=== PATIENT | female | born 1965 | race Caucasian/White ===

== ENCOUNTER 2022-10-08 22:15 | Inpatient (IN) | payer MEDICAID ==
[~2022-10-08] VITALS: Ht 152.4 cm; Wt 65.3 kg
[2022-10-08 22:20] VITALS: BP 147/73; PULSE 74; RESP 22; TEMP 97.8; O2SAT 88
--- NOTE | 2022-10-08 22:22 | NUR ---
pt to bed 02 w/c assisted
--- NOTE | 2022-10-08 22:37 | NUR ---
XRAY AT BEDSIDE
--- NOTE | 2022-10-08 22:54 | NUR ---
RT AT BEDSIDE
[2022-10-08] MEDS ORDERED: LORazepam 2 MG/ML VIAL ONE (22:55)
[2022-10-08] MEDS ORDERED: ONDANSETRON 4 MG/2 ML VIAL IVP ONE (22:55)
[2022-10-08] MEDS ORDERED: IPRATROPIUM 0.02% 0.5 MG/2.5 ML NEBU INH ONE (22:55)
[2022-10-08] MEDS ORDERED: LORazepam 2 MG/ML VIAL IVP ONE (22:55)
[2022-10-08] MEDS ORDERED: ALBUTEROL 0.083% 2.5 MG/3 ML NEBU INH ONE (22:55)
[2022-10-08 22:56] LABS: BASOPHILS # (AUTO) 0.2 K/uL (0.00-0.22); BASOPHILS % (AUTO) 1.1 % (0.0-2.0); EOSINOPHILS # (AUTO) 0.1 K/uL (0-0.4); EOSINOPHILS % (AUTO) 0.5 % (0.0-4.0); HEMATOCRIT 34.1 % (36-48); LYMPHOCYTES # (AUTO) 4.4 K/uL (2.5-16.5); LYMPHOCYTES % (AUTO) 25.3 % (20.5-51.1); MEAN CORPUSCULAR HEMOGLOBIN 28 pg (27-31); MEAN CORPUSCULAR HGB CONC 32 g/dL (33-37); MEAN CORPUSCULAR VOLUME 86.1 fL (80-94); MONOCYTES # (AUTO) 1.1 K/uL (0.8-1.0); MONOCYTES % (AUTO) 6.2 % (1.7-9.3); NEUTROPHILS # (AUTO) 11.6 K/uL (1.8-7.7); NEUTROPHILS % (AUTO) 66.9 % (42.2-75.2); PLATELET COUNT (AUTO) 308 K/uL (140-450); RED BLOOD CELL COUNT(AUTO) 3.96 MIL/uL (4.20-5.40); RED CELL DISTRIBUTION WIDTH 15.9 % (11.6-13.7); WHITE BLOOD COUNT (AUTO) 17.3 K/uL (4.8-10.8)
[2022-10-08 23:02] VITALS: BP 137/70; PULSE 75; O2SAT 99
[2022-10-08 23:05] VITALS: O2SAT 98
[2022-10-08 23:11] LABS: PROTHROMBIN TIME 10.2 secs (10.8-13.4)
[2022-10-08 23:12] VITALS: PULSE 72; RESP 35; O2SAT 97
[2022-10-08 23:23] LABS: ALBUMIN 3.7 g/dL (3.4-5.0); ANION GAP 16.8 (8-16); CARBON DIOXIDE 22.9 mmol/L (21-32); CREATININE 0.9 mg/dL (0.6-1.3); POTASSIUM 4.7 mmol/L (3.5-5.1); TOTAL BILIRUBIN 0.3 mg/dL (0.0-1.0)
--- NOTE | 2022-10-08 23:25 | NUR ---
57 YO F BIB SELF C/O SHORTNESS OF BREATH STARTING TODAY. PT STATES HX BRONCHITIS. AXO4. PT PRESENTS VERY ANXIOUS AND RESP SOUNDS WHEEZING. PT PLACED ON BIPAP PER RT. PLACED ON BEDSIDE RELATIONS COORDINATOR. ALLERGY: MORPHINE HX: CARDIAC BYPASS, BRONCHITIS
[2022-10-08] MEDS ORDERED: FUROSEMIDE 40 MG/4 ML VIAL IVP ONE (23:35)
[2022-10-08] MEDS ORDERED: cefTRIAXone 1,000 MG VIAL ONE (23:47)
[2022-10-09] VITALS (15 sets, daily range): BP systolic 106–130; BP diastolic 51–72; PULSE 58–75; RESP 16–22; TEMP 96.9–98.1; O2SAT 96–100
--- NOTE | 2022-10-09 00:01 | NUR ---
RT AT BEDSIDE COVID AND FLU SWABS COLLECTED AND SENT. FAMILY AT BEDSIDE
--- NOTE | 2022-10-09 00:25 | NUR ---
ATTEMPTED TO OBTAIN ABG PER MD. MD VERBALLY CANCELLED ABG AND ORDERED VBG INSTEAD.
--- NOTE | 2022-10-09 00:55 | NUR ---
PUREWIC APPLIED TO PT . RESP EVEN AND UNLABORED. PT ON BIPAP SP02 97%. ON BEDSIDE MONITOR HOB ELEVATED. PT FAMILY AT BEDSIDE
--- NOTE | 2022-10-09 01:06 | NUR ---
PT TO CT.
--- NOTE | 2022-10-09 01:29 | NUR ---
PT BACK FROM CT.
--- NOTE | 2022-10-09 01:30 | NUR ---
PT BACK FROM CT. PT TOLERATED WELL
--- NOTE | 2022-10-09 01:33 | NUR ---
PT ON BEDSIDE SPIKE DRIVER HOB ELEVATED. RESP EVEN AND UNLABORED. FAMILY LEFT LEFT FOR THE NIGHT. CALL LIGHT WITHIN REACH PT AWARE OF USE OF CALL LIGHT
--- NOTE | 2022-10-09 03:49 | NUR ---
PT RESTING IN BED WITH HOB ELEVATED . ON BEDSIDE MONITOR. RESP EVEN AND UNLABORED. PENDING ADMISSION ORDERS
[2022-10-09] MEDS ORDERED: AZITHROMYCIN 500 MG in DEXTROSE 5% 250 ML IV ONE (04:35)
[2022-10-09] MEDS ORDERED: AZITHROMYCIN 500 MG INJ VIAL IV ONE (04:40)
[2022-10-09] MEDS ORDERED: NACL 0.9% 1,000 ML IV SCH (04:50)
[2022-10-09] MEDS ORDERED: POTASSIUM CHLORIDE 10 MEQ TABER PO PRN (04:50)
[2022-10-09] MEDS ORDERED: DOCUSATE SODIUM 100 MG GELCAP PO PRN (04:50)
[2022-10-09] MEDS ORDERED: guaiFENesin DM 200/20 MG-10 ML 10 ML UDC PO PRN (04:50)
[2022-10-09] MEDS ORDERED: HYDROcodone/APAP 7.5/325 MG 1 TAB PO PRN (04:50)
[2022-10-09] MEDS ORDERED: ONDANSETRON 4 MG/2 ML VIAL IM/IVP PRN (04:50)
[2022-10-09] MEDS ORDERED: ZOLPIDEM 5 MG TAB PO PRN (04:50)
[2022-10-09] MEDS ORDERED: ALBUTEROL SULFATE/IPRATROPIU 3 ML SOL IH PRN (04:55)
[2022-10-09] MEDS ORDERED: FUROSEMIDE 40 MG/4 ML VIAL IVP SCH (05:00)
--- NOTE | 2022-10-09 05:51 | NUR ---
Patient will be admitted to care of DR FARR. Admited to TELE . Will go to room 111B. Belongings list completed. Report to RUFINA FRAZIER.
--- NOTE | 2022-10-09 05:54 | NUR ---
TRANSFERRED PT FROM ER TO TELEMETRY. PT SPO2 99% ON BIPAP, NO RESPIRATORY DISTRESS NOTED. BIPAP MACHINE WHEEL LOCK ENGAGED, PLUGGED INTO RED OUTLET, ALARMS ON AND AUDIBLE, CALL LIGHT IS WITHIN REACH.
--- NOTE | 2022-10-09 05:55 | NUR ---
received pt from er nurse Cortez. pt arrived via gurney, patient is awake, alert and oriented x 4. pt is on bipap, no s/sx of respiratory distress noted. vital signs as follows BP 98/48, hr 65, rr 18, temp 96.9 and o2 sat at 100%. lasix was not given at 5am due to low blood pressures. No complains of pain at the moment. all needs met. mrsa swab done. oriented to room, visiting hours and call light.all safety precautions in place. call light within reach. will continue to monitor.
[2022-10-09] MEDS: ALBUTEROL SULFATE/IPRATROPIU 3 ML SOL IH SCH ×3 (07:33→19:10)
[2022-10-09 08:16] LABS: BASOPHILS # (AUTO) 0.1 K/uL (0.00-0.22); BASOPHILS % (AUTO) 1.2 % (0.0-2.0); EOSINOPHILS % (AUTO) 0.1 % (0.0-4.0); HEMATOCRIT 30.1 % (36-48); HEMOGLOBIN 9.8 g/dL (12.0-16.0); LYMPHOCYTES # (AUTO) 2.5 K/uL (2.5-16.5); LYMPHOCYTES % (AUTO) 24.2 % (20.5-51.1); MEAN CORPUSCULAR HEMOGLOBIN 28 pg (27-31); MEAN CORPUSCULAR HGB CONC 33 g/dL (33-37); MEAN CORPUSCULAR VOLUME 85.2 fL (80-94); MONOCYTES # (AUTO) 0.8 K/uL (0.8-1.0); MONOCYTES % (AUTO) 7.7 % (1.7-9.3); NEUTROPHILS % (AUTO) 66.8 % (42.2-75.2); PLATELET COUNT (AUTO) 238 K/uL (140-450); RED BLOOD CELL COUNT(AUTO) 3.53 MIL/uL (4.20-5.40); RED CELL DISTRIBUTION WIDTH 15.9 % (11.6-13.7); WHITE BLOOD COUNT (AUTO) 10.5 K/uL (4.8-10.8)
[2022-10-09 08:30] LABS: ALBUMIN 3.2 g/dL (3.4-5.0); CARBON DIOXIDE 28.9 mmol/L (21-32); CREATININE 0.7 mg/dL (0.6-1.3); POTASSIUM 3.9 mmol/L (3.5-5.1); TOTAL BILIRUBIN 0.4 mg/dL (0.0-1.0)
--- NOTE | 2022-10-09 08:42 | NUR ---
PATIENT HAS BEEN SCREENED AND CATEGORIZED MODERATE NUTRITION RISK. PATIENT WILL BE SEEN WITHIN 3-5 DAYS OF ADMISSION. 10/12/22-10/14/[address]
[2022-10-09] MEDS ORDERED: FUROSEMIDE 20 MG TAB PO SCH (10:17)
[2022-10-09] MEDS: POTASSIUM CHLORIDE 10 MEQ TABER PO SCH (11:03)
[2022-10-09] MEDS: PANTOPRAZOLE 40 MG TABEC PO SCH (11:03)
[2022-10-09 11:53] LABS: FREE T4 (FREE THYROXINE) 1.31 ng/dL (0.76-1.46); THYROID STIMULATING HORMONE 1.93 uIU/mL (0.34-3.74)
--- NOTE | 2022-10-09 13:45 | NUR ---
DURING TREATMENT PATIENT WOKE UP. ASKED IF BiPAP COULD BE REMOVED. O2 SATURATION HAS CONSISTENTLY BEEN 1005, SO REMOVED BiPAP AND PLACED ON 2L NC. PT RESTING COMFORTABLY AND TOLERATING NC. FiO2 IS 98%, RR 18, AND HR 62. CALL LIGHT IS ON BED WITHIN PT REACH.
[2022-10-09] MEDS ORDERED: DEXTROSE 50% 50 ML SYR IVP PRN (18:30)
[2022-10-09] MEDS: metFORMIN 500 MG TAB PO SCH (19:14)
[2022-10-09] MEDS: FUROSEMIDE 40 MG/4 ML VIAL IVP SCH (19:14)
--- NOTE | 2022-10-09 19:15 | NUR ---
RECEIVED PT ON 2L NC WITH BIPAP ON STBY. PT WITH SPO2 96% WITH NO SIGNS OF RESPIRATORY DISTRESS NOTED. PT AWAKE ALERT. NO ADVERSE REACTIONS TO BREATHING TX. CALL LIGHT WITHIN REACH.
--- NOTE | 2022-10-09 22:00 | NUR ---
DIET ORDER COMPLICATED , INFORM CHARGE NURSE BRIDGER REILLY LET PUT PT NPO POST MN AND WILL VERIFY IT TO THE DOCTOR ANEL. AM .
[2022-10-09] MEDS: BLOOD GLUCOSE MONITORING 1 DEV DEV FS SCH (22:15)
[2022-10-09] MEDS: METOPROLOL 25 MG TAB PO SCH (22:44)
[2022-10-09] MEDS: AMIODARONE 200 MG TAB PO SCH (22:44)
[2022-10-10] VITALS (9 sets, daily range): BP systolic 97–128; BP diastolic 52–72; PULSE 65–90; RESP 18–19; TEMP 96.7–98.4; O2SAT 98–100
[2022-10-10 01:03] LABS: APPEARANCE,URINE CLEAR (CLEAR); BILIRUBIN,URINE NEGATIVE (NEGATIVE); BLOOD, URINE NEGATIVE (NEGATIVE); COLOR,URINE YELLOW (YELLOW); LEUKOCYTE ESTERASE ,URINE NEGATIVE (NEGATIVE); NITRITE, URINE NEGATIVE (NEGATIVE); UGLUCOSE NEGATIVE (NEGATIVE)
[2022-10-10 01:24] LABS: BARBITURATE, URINE NEGATIVE ng/ml (NEG <=200); BENZODIAZEPINE, URINE POSITIVE ng/mL (NEG <=200); CANNABINOID, URINE NEGATIVE ng/mL (NEG <=50); COCAINE, URINE NEGATIVE ng/mL (NEG <=300); OPIATE, URINE NEGATIVE ng/mL (NEG <=2000); PHENCYCLIDINE SCREEN,URINE NEGATIVE ng/mL (NEG <=25)
--- NOTE | 2022-10-10 04:00 | NUR ---
rounds , no s/sx of acute distress noted , call light within reach
--- NOTE | 2022-10-10 06:00 | NUR ---
rounds , no s/sx of acute distress noted , call light within reach .
[2022-10-10 06:34] LABS: BASOPHILS # (AUTO) 0.1 K/uL (0.00-0.22); BASOPHILS % (AUTO) 0.8 % (0.0-2.0); EOSINOPHILS # (AUTO) 0.2 K/uL (0-0.4); EOSINOPHILS % (AUTO) 2.7 % (0.0-4.0); HEMATOCRIT 32.8 % (36-48); HEMOGLOBIN 10.5 g/dL (12.0-16.0); LYMPHOCYTES # (AUTO) 2.2 K/uL (2.5-16.5); LYMPHOCYTES % (AUTO) 29.9 % (20.5-51.1); MEAN CORPUSCULAR HEMOGLOBIN 28 pg (27-31); MEAN CORPUSCULAR HGB CONC 32 g/dL (33-37); MEAN CORPUSCULAR VOLUME 85.7 fL (80-94); MONOCYTES # (AUTO) 0.8 K/uL (0.8-1.0); MONOCYTES % (AUTO) 11.1 % (1.7-9.3); NEUTROPHILS % (AUTO) 55.5 % (42.2-75.2); PLATELET COUNT (AUTO) 241 K/uL (140-450); RED BLOOD CELL COUNT(AUTO) 3.83 MIL/uL (4.20-5.40); RED CELL DISTRIBUTION WIDTH 15.4 % (11.6-13.7); WHITE BLOOD COUNT (AUTO) 7.2 K/uL (4.8-10.8)
[2022-10-10 06:48] LABS: ALBUMIN 3.2 g/dL (3.4-5.0); ANION GAP 15.1 (8-16); CARBON DIOXIDE 29.6 mmol/L (21-32); CREATININE 0.7 mg/dL (0.6-1.3); POTASSIUM 3.7 mmol/L (3.5-5.1); TOTAL BILIRUBIN 0.4 mg/dL (0.0-1.0)
[2022-10-10] MEDS: ALBUTEROL SULFATE/IPRATROPIU 3 ML SOL IH SCH ×3 (07:00→19:18)
[2022-10-10] MEDS: BLOOD GLUCOSE MONITORING 1 DEV DEV FS SCH ×4 (07:06→20:16)
--- NOTE | 2022-10-10 07:35 | NUR ---
CHECKED ON PT TO TRY TO GIVE TX PT REFUSED STATED SHE DIDNT NEED ONE AT THIS TIME. PT DID REQUEST FOR SUPPLIES TO BRUSH HER TEETH . RT GAVE SUPPLIES AND ASSURED CALL LIGHT IS AT ARMS REACH. NO DISTRESS NOTED. WILL CONTINUE TO MONITOR
--- NOTE | 2022-10-10 07:38 | NUR ---
endorsed pt. for cont. of care .
--- NOTE | 2022-10-10 07:39 | NUR ---
RECEIVED REPORT FROM NIGHT NURSE FOR CONTINUITY OF CARE. PT IS ASLEEP, AWAKEN BY NAME. NO SIGN OF DISTRESS. CALL LIGHT WITHIN REACH.
[2022-10-10] MEDS ORDERED: FUROSEMIDE 20 MG TAB PO SCH (09:00)
[2022-10-10] MEDS: ATORVASTATIN 80 MG TAB PO SCH (10:16)
[2022-10-10] MEDS: AZITHROMYCIN 250 MG TAB PO SCH (10:16)
[2022-10-10] MEDS: ASPIRIN 325 MG TABEC PO SCH (10:17)
[2022-10-10] MEDS: AMIODARONE 200 MG TAB PO SCH ×2 (10:17→20:14)
[2022-10-10] MEDS: FUROSEMIDE 40 MG/4 ML VIAL IVP SCH (10:17)
[2022-10-10] MEDS: METOPROLOL 25 MG TAB PO SCH ×2 (10:18→20:20)
[2022-10-10] MEDS: PANTOPRAZOLE 40 MG TABEC PO SCH (10:18)
[2022-10-10] MEDS: amLODIPine 5 MG TAB PO SCH (10:19)
[2022-10-10] MEDS: metFORMIN 500 MG TAB PO SCH ×2 (10:19→17:33)
--- NOTE | 2022-10-10 12:00 | NUR ---
PT IS STABLE, TALKING ON THE PHONE WITH FAMILY. CALL LIGHT WITHIN REACH.
[2022-10-10] MEDS: POTASSIUM CHLORIDE 10 MEQ TABER PO SCH (17:35)
--- NOTE | 2022-10-10 19:30 | NUR ---
RECEIVED REPORT FROM DAY SHIFT NURSE DANNI FOR CONTINUITY OF CARE. PATIENT IS A&O X4. PATIENT IS ON 2L NC, BREATHING IS NORMAL WITH SYMMETRICAL RISE AND FALL OF CHEST. IV IS A 20G RAC, RUNNING NS 5ML TKO. PATIENT IS ON PUREWICK. PATIENT IS SITTING IN SEMI-FOWLERS POSITION. BED IS IN LOWEST POSITION, WHEELS LOCKED, CALL LIGHT IN PLACE. WILL CONTINUE TO OBSERVE PATIENT.
--- NOTE | 2022-10-10 19:40 | NUR ---
ENDORSED TO NIGHT NURSE FOR CONTINUITY OF CARE. PT IS AWAKE, NO SIGN OF DISTRESS. CALL LIGHT WITHIN REACH.
[2022-10-10] MEDS: ACETAMINOPHEN 325 MG TAB PO PRN (20:16)
--- NOTE | 2022-10-10 22:00 | NUR ---
HELD PATIENT'S METOPROLOL DUE TO PATIENT'S LOW BP (97/52). ADMINISTERED OTHER 2100 MEDICATIONS TO PATIENT. MEDICATIONS ADMINISTERED SUCCESSFULLY WITHOUT ANY ISSUES WITH SWALLOWING OR IV. WILL CONTINUE TO OBSERVE PATIENT.
--- NOTE | 2022-10-10 23:30 | NUR ---
PATIENT REQUESTED TYLENOL FOR 3/10 CHEST PAIN. CHECKED PATIENT'S CHART AND ADMINISTERED MEDICATION TO PATIENT. REASSESSED PATIENT AT 2118; PATIENT WAS SLEEPING. WILL CONTINUE TO OBSERVE PATIENT.
[2022-10-11] VITALS (12 sets, daily range): BP systolic 105–127; BP diastolic 60–76; PULSE 63–86; RESP 17–19; TEMP 96.5–98.5; O2SAT 94–100
--- NOTE | 2022-10-11 01:00 | NUR ---
LOOKED IN ON PATIENT. PATIENT IS SLEEPING. BREATHING IS NORMAL WITH SYMMETRICAL RISE AND FALL OF CHEST. PATIENT IS O2 SATURATION IS AT 100% ON 2L NC.
--- NOTE | 2022-10-11 04:30 | NUR ---
OBTAINED PATIENT'S VITALS. VITALS WERE WITHIN NORMAL LIMITS. PATIENT INFORMED ME THAT SHE VOIDED TWICE DURING THE NIGHT IN THE BATHROOM WITH NO BM. PATIENT IS LYING SEMI-FOWLERS IN BED; BREATHING IS NORMAL ON 2L NC WITH SYMMETRICAL RISE AND FALL OF CHEST. WILL CONTINUE TO OBSERVE PATIENT.
[2022-10-11 06:16] LABS: BASOPHILS % (AUTO) 0.6 % (0.0-2.0); EOSINOPHILS # (AUTO) 0.3 K/uL (0-0.4); EOSINOPHILS % (AUTO) 3.8 % (0.0-4.0); HEMATOCRIT 34.7 % (36-48); HEMOGLOBIN 11.2 g/dL (12.0-16.0); LYMPHOCYTES # (AUTO) 1.8 K/uL (2.5-16.5); LYMPHOCYTES % (AUTO) 27.4 % (20.5-51.1); MEAN CORPUSCULAR HEMOGLOBIN 28 pg (27-31); MEAN CORPUSCULAR HGB CONC 32 g/dL (33-37); MEAN CORPUSCULAR VOLUME 85.5 fL (80-94); MONOCYTES # (AUTO) 0.7 K/uL (0.8-1.0); MONOCYTES % (AUTO) 9.9 % (1.7-9.3); NEUTROPHILS # (AUTO) 3.9 K/uL (1.8-7.7); NEUTROPHILS % (AUTO) 58.3 % (42.2-75.2); PLATELET COUNT (AUTO) 276 K/uL (140-450); RED BLOOD CELL COUNT(AUTO) 4.06 MIL/uL (4.20-5.40); RED CELL DISTRIBUTION WIDTH 15.3 % (11.6-13.7); WHITE BLOOD COUNT (AUTO) 6.6 K/uL (4.8-10.8)
[2022-10-11 06:47] LABS: ALBUMIN 3.3 g/dL (3.4-5.0); ANION GAP 12.8 (8-16); CARBON DIOXIDE 29.6 mmol/L (21-32); CREATININE 0.7 mg/dL (0.6-1.3); POTASSIUM 4.4 mmol/L (3.5-5.1); TOTAL BILIRUBIN 0.4 mg/dL (0.0-1.0)
[2022-10-11] MEDS: ALBUTEROL SULFATE/IPRATROPIU 3 ML SOL IH SCH ×3 (07:08→19:39)
--- NOTE | 2022-10-11 07:20 | NUR ---
RECEIVED PT ON 2L NASAL CANULA. SATURATION 100%. NO DISTRESS NOTED. BIPAP ON STAND BY. CALL LIGHT WITHIN REACH O0F PATIENT.
--- NOTE | 2022-10-11 07:30 | NUR ---
RECEIVED REPORT FROM PM NURSE. PT IS RESTING IN BED, RESPIRATIONS EVEN AND UL ON 2LNC, OXYGEN 97%, NO SOB/DISTRESS. PT IS AAO x4, DENIES PAIN/DISCOMFORT. ALL NEEDS MET. CALL LIGHT IN REACH. SAFETY MEASURES IN PLACE.
--- NOTE | 2022-10-11 07:49 | NUR ---
ENDORSED TO DAY SHIFT NURSE DESIRE FOR CONTINUITY OF CARE. PATIENT IS STABLE.
[2022-10-11] MEDS: BLOOD GLUCOSE MONITORING 1 DEV DEV FS SCH ×4 (07:52→21:33)
[2022-10-11] MEDS: POTASSIUM CHLORIDE 10 MEQ TABER PO SCH (08:25)
[2022-10-11] MEDS: ATORVASTATIN 80 MG TAB PO SCH (08:25)
[2022-10-11] MEDS: PANTOPRAZOLE 40 MG TABEC PO SCH (08:26)
[2022-10-11] MEDS: AZITHROMYCIN 250 MG TAB PO SCH (08:26)
[2022-10-11] MEDS: metFORMIN 500 MG TAB PO SCH ×2 (08:26→17:24)
[2022-10-11] MEDS: ASPIRIN 325 MG TABEC PO SCH (08:27)
[2022-10-11] MEDS: AMIODARONE 200 MG TAB PO SCH ×2 (08:27→20:54)
[2022-10-11] MEDS: METOPROLOL 25 MG TAB PO SCH ×2 (08:30→20:54)
[2022-10-11] MEDS: amLODIPine 5 MG TAB PO SCH (08:30)
[2022-10-11] MEDS: FUROSEMIDE 40 MG/4 ML VIAL IVP SCH (08:31)
[2022-10-11] MEDS: ACETAMINOPHEN 325 MG TAB PO PRN ×2 (11:24→20:53)
[2022-10-11] MEDS: INSULIN LISPRO SLIDING SCALE 100 UNITS/ML VIAL SUBQ PRN ×2 (11:32→21:33)
--- NOTE | 2022-10-11 13:39 | NUR ---
PT CURRENTLY RESTING. NO DISTRESS NOTED, EQUAL BREATHING, NO SOB AT REST. CALL LIGHT WITHIN REACH OF PT. WILL CONTINUE TO MONITOR.
--- NOTE | 2022-10-11 14:03 | NUR ---
PT RESTING IN BED, APPEARS COMFORTABLE. NO C/O PAIN/DISCOMFORT. RESPIRATIONS EVEN AND UL ON 2LNC, OXYGEN SAT 98%. ALL NEEDS MET AT THIS TIME. CALL LIGHT IN REACH, SAFETY MEASURES IN PLACE.
--- NOTE | 2022-10-11 19:51 | NUR ---
ENDORSED TO NIGHTSHIFT NURSE FOR CONTINUITY OF CARE. RT WITH PT AT BEDSIDE DOING BREATHING TREATMENT. PT ABLE TO PROVIDE SPUTUM FOR SPUTUM CULTURE. TOOK CULTURE TO LAB. NO FURTHER NEEDS ARE TO BE MET AT THIS TIME. CALL LIGHT WITHIN REACH.
--- NOTE | 2022-10-11 19:56 | NUR ---
RECEIVED PT SITTING IN THE BED RECIEVING BREATHING TREATMENT , CALL LIGHT WITHIN REACH , WILL CONT. TO MONITOR , HOOK ON O2 SAT MONITORING .
--- NOTE | 2022-10-11 22:42 | NUR ---
RECEIVED CALL FROM NURSE PATIENT WANTED TO GO ON BIPAP, I PUT HER ON WITH THE SETTINGS 10/5, 16, 28% AND ASKED HER IF SHE WAS IT FINE AND SHE SAID YES. AT 2257 THE NURSE (DEVIN) CALLS TO TELL ME THAT THE PATIENT CANNOT HANDLE THE BIPAP AND WANTS IT TO BE TAKEN OFF. I TOOK HER OFF THE BIPAP AND HER SATURATION WAS 96% ON ROOM AIR. PATIENT THEN COMPLAINS ABOUT CHEST PAIN AND I DO AN EKG. I CHECKED BACK ON PATIENT AT 0128 AND SHE WAS SLEEPING AND IS NOW ON 2L NC SATURATING 100%
[2022-10-11] MEDS ORDERED: KETOROLAC 15 MG/ML VIAL IM PRN (23:15)
--- NOTE | 2022-10-11 23:23 | NUR ---
HIT THE CALL LIGHT C/O ON AND OFF CHEST PAIN RADIATING TO BACK - WILL REFER TO DR Cesario MICHELLE , BP 105/ 60 , HR 71 , O2 SAT 99 % , RR 18
--- NOTE | 2022-10-11 23:51 | NUR ---
RELAYED RESULT OF EKG AND TROPONIN TO DR. MICHELLE . CLARIFYING THE ROUTE OF TRAMADOL TO DR Cesario MICHELLE PER DR. MICHELLE YES IM - WILL CARRY OUT .
[2022-10-12] VITALS (10 sets, daily range): BP systolic 99–116; BP diastolic 57–71; PULSE 62–91; RESP 16–18; TEMP 97.7–98.7; O2SAT 96–100
--- NOTE | 2022-10-12 00:53 | NUR ---
ROUNDS SLEEPING , HOOK ON O2 SAT MONITORING 100 % , HR 62 , ON TELE MONITOR , CALL LIGHT WITHIN REACH .
--- NOTE | 2022-10-12 04:00 | NUR ---
rounds , no s/sx of acute distress noted , will cont. to monitor , call light within reach .
--- NOTE | 2022-10-12 06:00 | NUR ---
c/o headache , bp 99 /60 , afebrile , o2 sat 100m % - will medicate
[2022-10-12] MEDS: ACETAMINOPHEN 325 MG TAB PO PRN (06:05)
[2022-10-12] MEDS: BLOOD GLUCOSE MONITORING 1 DEV DEV FS SCH ×4 (06:12→21:44)
[2022-10-12 06:34] LABS: BASOPHILS % (AUTO) 0.5 % (0.0-2.0); EOSINOPHILS # (AUTO) 0.3 K/uL (0-0.4); EOSINOPHILS % (AUTO) 3.4 % (0.0-4.0); HEMATOCRIT 34.5 % (36-48); HEMOGLOBIN 11.2 g/dL (12.0-16.0); LYMPHOCYTES # (AUTO) 2.1 K/uL (2.5-16.5); LYMPHOCYTES % (AUTO) 27.8 % (20.5-51.1); MEAN CORPUSCULAR HEMOGLOBIN 28 pg (27-31); MEAN CORPUSCULAR HGB CONC 33 g/dL (33-37); MEAN CORPUSCULAR VOLUME 85.4 fL (80-94); MONOCYTES # (AUTO) 0.7 K/uL (0.8-1.0); MONOCYTES % (AUTO) 9.4 % (1.7-9.3); NEUTROPHILS # (AUTO) 4.4 K/uL (1.8-7.7); NEUTROPHILS % (AUTO) 58.9 % (42.2-75.2); PLATELET COUNT (AUTO) 301 K/uL (140-450); RED BLOOD CELL COUNT(AUTO) 4.04 MIL/uL (4.20-5.40); RED CELL DISTRIBUTION WIDTH 14.9 % (11.6-13.7); WHITE BLOOD COUNT (AUTO) 7.5 K/uL (4.8-10.8)
[2022-10-12 07:05] LABS: ALBUMIN 3.2 g/dL (3.4-5.0); ANION GAP 11.9 (8-16); CARBON DIOXIDE 29.2 mmol/L (21-32); CREATININE 0.7 mg/dL (0.6-1.3); POTASSIUM 4.1 mmol/L (3.5-5.1); TOTAL BILIRUBIN 0.3 mg/dL (0.0-1.0)
--- NOTE | 2022-10-12 07:30 | NUR ---
RECEIVED PT FROM PARTS SALES COUNTERPERSON NURSE FOR CONTINUITY OF CARE. PT IS AWAKE, AOX4. ABLE TO VERBALIZE NEEDS. RESPIRATIONS EVEN AND UNLABORED ON 2L VIA NC. NO RESPIRATORY DISTRESS NOTED. SKIN WARM AND DRY TO TOUCH. IV ON R ARM 22G, SL. CALL LIGHT WITHIN REACH. ALL SAFETY PRECAUTIONS IN PLACE.
--- NOTE | 2022-10-12 07:30 | NUR ---
RECEIVED PT ON 2L NASAL CANNULA. SATURATION 99%. BREATHING TREATMENT GIVEN. NO DISTRESS NOTED. CALL LIGHT WITHIN REACH OF PT. WILL CONTINUE TO MONITOR.
--- NOTE | 2022-10-12 07:30 | NUR ---
endorsed pt for cont. of care .
[2022-10-12] MEDS: ALBUTEROL SULFATE/IPRATROPIU 3 ML SOL IH SCH ×3 (07:40→19:05)
[2022-10-12] MEDS: FUROSEMIDE 40 MG/4 ML VIAL IVP SCH (09:27)
[2022-10-12] MEDS: AMIODARONE 200 MG TAB PO SCH ×2 (09:35→21:37)
[2022-10-12] MEDS: AZITHROMYCIN 250 MG TAB PO SCH (09:36)
[2022-10-12] MEDS: ASPIRIN 325 MG TABEC PO SCH (09:36)
[2022-10-12] MEDS: POTASSIUM CHLORIDE 10 MEQ TABER PO SCH (09:36)
[2022-10-12] MEDS: METOPROLOL 25 MG TAB PO SCH ×2 (09:37→21:38)
[2022-10-12] MEDS: metFORMIN 500 MG TAB PO SCH ×2 (09:37→17:04)
[2022-10-12] MEDS: ATORVASTATIN 80 MG TAB PO SCH (09:38)
[2022-10-12] MEDS: PANTOPRAZOLE 40 MG TABEC PO SCH (09:38)
[2022-10-12] MEDS: amLODIPine 5 MG TAB PO SCH (09:38)
--- NOTE | 2022-10-12 09:44 | NUR ---
ADMINISTERED SCHEDULED MEDS. PT TOLERATING WELL.
--- NOTE | 2022-10-12 10:27 | NUR ---
HOME O2 EVALUATION. 95%-97% SATURATION ON ROOM AIR. PT CURRENTLY ON ROOM AIR. 2L NASAL CANNULA ON STAND BY IF NEEDED. CALL LIGHT WITHIN REACH OF PT. WILL CONTINUE TO MONITOR.
--- NOTE | 2022-10-12 14:15 | NUR ---
10/12/22 RD INITIAL ASSESSMENT COMPLETED PLEASE REFER TO NUTRITION ASSESSMENT UNDER CARE ACTIVITY FOR ESTIMATED NUTRITIONAL NEEDS. 1. CONTINUE CCHO 60 GRAM AND ADD CARDIAC DIET TOLERATED 2. RD ENCOURAGES PATIENT TO CONTINUE TO FOLLOW HEALRT HEALTHY DIET INFORMATION GIVEN AT THE HOSPITAL ONCE SHE LEAVES. 3. RD TO FOLLOW-UP 7 DAYS, LOW RISK ALMA [address]OTHE RD
--- NOTE | 2022-10-12 15:58 | NUR ---
DC PLANNING A 57 YO FEMALE PATIENT ALERT AND ORIENTED X3 ADMITTED TO TELEMETRY FOR ACUTE HYPOXIC RESPIRATORY FAILURE AND MULTIFOCAL PNEUMONIA.C/O SOB AND WAS PLACED ON BIPAP.H/O SC (AUGUST 2022), CABG 09/04/22 AT [facility].ON RA SATURATING 97%.ON CEFTRIAXONE AND LASIX IV 40MG DAILY.PULMO AND CARDIO ON BOARD.DC PLAN-HOME WHEN PATIENT CONDITION IMPROVES AND PATIENT RESPONDS TO TX.CM TO FOLLOW.
--- NOTE | 2022-10-12 19:30 | NUR ---
ENDORSED PT TO AIRCRAFT STEEL FABRICATOR NURSE FOR CONTINUITY OF CARE. PT IS STABLE.
--- NOTE | 2022-10-12 19:30 | NUR ---
RECEIVED REPORT FROM DAY SHIFT NURSE FOR CONTINUITY OF CARE. PATIENT IS A&O X4. PATIENT IS ON ROOM AIR, BREATHING EVEN AND UNLABORED, . IV IS A 22G FA, TKO. PATIENT IS AMBULATORY.POC DISCUSSED.NO COMPLAINS OF PAIN OR SOB AT THIS TIME.ALL PRECAUTIONS IN PLACE. CALL LIGHT IN PLACE. WILL CONTINUE TO OBSERVE PATIENT.
--- NOTE | 2022-10-12 21:30 | NUR ---
SCHEDULED MEDICATION GIVEN. PT TOLERATED WELL.WILL CONTINUE TO MONITOR.
[2022-10-13] VITALS (8 sets, daily range): BP systolic 104–123; BP diastolic 61–69; PULSE 66–79; RESP 18; TEMP 97–98.1; O2SAT 94–100
--- NOTE | 2022-10-13 03:08 | NUR ---
PT ASLEEP IN BED. NO S/SX OF DISTRESS NOTED. BREATHING EVEN AND UNLABORED.ALL PRECAUTIONS IN PLACE.CALL LIGHT WITHIN REACH. WILL CONTINUE TO MONITOR.
[2022-10-13 05:34] LABS: BASOPHILS # (AUTO) 0.1 K/uL (0.00-0.22); BASOPHILS % (AUTO) 0.7 % (0.0-2.0); EOSINOPHILS # (AUTO) 0.2 K/uL (0-0.4); EOSINOPHILS % (AUTO) 2.5 % (0.0-4.0); HEMATOCRIT 34.4 % (36-48); HEMOGLOBIN 11.3 g/dL (12.0-16.0); LYMPHOCYTES # (AUTO) 2.3 K/uL (2.5-16.5); LYMPHOCYTES % (AUTO) 26.7 % (20.5-51.1); MEAN CORPUSCULAR HEMOGLOBIN 28 pg (27-31); MEAN CORPUSCULAR HGB CONC 33 g/dL (33-37); MEAN CORPUSCULAR VOLUME 84.7 fL (80-94); MONOCYTES # (AUTO) 0.9 K/uL (0.8-1.0); NEUTROPHILS # (AUTO) 5.1 K/uL (1.8-7.7); NEUTROPHILS % (AUTO) 60.1 % (42.2-75.2); PLATELET COUNT (AUTO) 326 K/uL (140-450); RED BLOOD CELL COUNT(AUTO) 4.06 MIL/uL (4.20-5.40); WHITE BLOOD COUNT (AUTO) 8.5 K/uL (4.8-10.8)
[2022-10-13 05:56] LABS: ALBUMIN 3.4 g/dL (3.4-5.0); ANION GAP 13.7 (8-16); CARBON DIOXIDE 28.1 mmol/L (21-32); CREATININE 0.7 mg/dL (0.6-1.3); POTASSIUM 3.8 mmol/L (3.5-5.1); TOTAL BILIRUBIN 0.3 mg/dL (0.0-1.0)
[2022-10-13] MEDS: BLOOD GLUCOSE MONITORING 1 DEV DEV FS SCH ×2 (06:19→12:08)
--- NOTE | 2022-10-13 06:35 | NUR ---
PT IS STABLE. NO ACUTE EVENTS THROUGHOUT THE NIGHT. ALL NEEDS MET. NO S/SX OF DISTRESS AT THE MOMENT. ALL PRECAUTIONS IN PLACE. CALL LIGHT WITHIN REACH. WILL ENDORSE TO MORNING SHIFT NURSE.
[2022-10-13] MEDS: ALBUTEROL SULFATE/IPRATROPIU 3 ML SOL IH SCH ×2 (07:32→13:00)
[2022-10-13] MEDS: metFORMIN 500 MG TAB PO SCH (07:50)
--- NOTE | 2022-10-13 07:55 | NUR ---
RECEIVED REPORT FROM MONEY ROOM SUPERVISOR NURSE FOR CONTINUITY OF CARE. PATIENT IS
--- NOTE | 2022-10-13 08:00 | NUR ---
Patient's Plan of Care was discussed and reviewed with BABY STROLLER RENTAL CLERK:
[2022-10-13] MEDS: AZITHROMYCIN 250 MG TAB PO SCH (08:16)
[2022-10-13] MEDS: PANTOPRAZOLE 40 MG TABEC PO SCH (08:17)
[2022-10-13] MEDS: AMIODARONE 200 MG TAB PO SCH (08:17)
[2022-10-13] MEDS: ATORVASTATIN 80 MG TAB PO SCH (08:18)
[2022-10-13] MEDS: ASPIRIN 325 MG TABEC PO SCH (08:18)
[2022-10-13] MEDS: POTASSIUM CHLORIDE 10 MEQ TABER PO SCH (08:18)
[2022-10-13] MEDS: amLODIPine 5 MG TAB PO SCH (08:19)
[2022-10-13] MEDS: METOPROLOL 25 MG TAB PO SCH (08:27)
[2022-10-13] MEDS: FUROSEMIDE 40 MG/4 ML VIAL IVP SCH (09:00)
[2022-10-13] MEDS ORDERED: AZIT250T4 PO (11:15)
[2022-10-13] MEDS ORDERED: METO25TA PO (11:15)
[2022-10-13] MEDS ORDERED: ASPI-1206 PO (11:15)
[2022-10-13] MEDS ORDERED: FURO-570 PO (11:15)
[2022-10-13] MEDS ORDERED: LIP80 PO (11:15)
[2022-10-13] MEDS ORDERED: AMIO200T62 PO (11:15)
[2022-10-13] MEDS ORDERED: AMLO-3 PO (11:15)
[2022-10-13] MEDS ORDERED: METF-346 PO (11:15)
--- NOTE | 2022-10-13 17:10 | NUR ---
PATIENT DISCHARGED @ 1508. ALL IV'S REMOVED. ARMBAND REMOVED. DISCHARGE PAPERWORK AND PATIENT BELONGINGS WITH PATIENT AT TIME OF DISCHARGE.
== END 2022-10-13 17:10 | disposition home or self-care (01) | DRG 720 ==
LOC: MED 22:15 → MTU 10-09 04:52
PROVIDERS: ADMIT Student in an Organized Health Care Education/Training Program; ATTEND Student in an Organized Health Care Education/Training Program
PROC: 5A09357 Assistance with Respiratory Ventilation, Less than 24 Consecutive Hours, Continuous Positive Airway Pressure (ICD-10-PCS; principal; 2022-10-08)
PROC: 5A09357 Assistance with Respiratory Ventilation, Less than 24 Consecutive Hours, Continuous Positive Airway Pressure (ICD-10-PCS; 2022-10-10)
DX: A41.9 Sepsis, unspecified organism (principal); J96.01 Acute respiratory failure with hypoxia; J69.0 Pneumonitis due to inhalation of food and vomit; I50.43 Acute on chronic combined systolic (congestive) and diastolic (congestive) heart failure; E44.1 Mild protein-calorie malnutrition; D63.8 Anemia in other chronic diseases classified elsewhere; E86.0 Dehydration; I11.0 Hypertensive heart disease with heart failure; Z68.24 Body mass index [BMI] 24.0-24.9, adult; Z20.822 Contact with and (suspected) exposure to COVID-19; I25.10 Atherosclerotic heart disease of native coronary artery without angina pectoris; E11.9 Type 2 diabetes mellitus without complications; E78.5 Hyperlipidemia, unspecified; Z98.61 Coronary angioplasty status; Z88.5 Allergy status to narcotic agent
CPT/HCPCS: 36415; 71045; 71275; 80053; 80305; 81003; 83036; 83605; 83880; 84439; 84443; 84484; 85025; 85610; 85730; 87040; 87070; 87081; 87205; 93005; 93971; 94640; 94660; 96365; 96367; 96374; 96375; 99291; J0456; J0696; J1815; J1940; J2060; J2405; J7060; J7613; J7644; Q0092; Q9967